=== PATIENT | female | born 1945 | race Caucasian/White ===

== ENCOUNTER 2017-07-09 11:02 | Emergency (ER) | payer MEDICARE ==
[~2017-07-09] VITALS: Ht 154.9 cm; Wt 65.8 kg
[2017-07-09] MEDS ORDERED: CLONIDINE1 EAC1 TD (11:35)
[2017-07-09] MEDS ORDERED: LISINOPRIL40 MG PO (11:35)
[2017-07-09] MEDS ORDERED: ATENOLOL50 MG PO (11:35)
[2017-07-09] MEDS ORDERED: METFORMIN HCL850 MG PO (11:36)
[2017-07-09] MEDS ORDERED: HYDROMORPHONE HC4 MG PO (11:39)
[2017-07-09] MEDS ORDERED: METHADONE HCL10 MG PO (11:40)
[2017-07-09] MEDS ORDERED: NAPROXEN375 MG PO (13:12)
[2017-07-09] MEDS ORDERED: LIDODERM1 EACH TOP (13:28)
== END 2017-07-09 13:45 | disposition home or self-care (01) ==
LOC: ED 11:02
DX: S46.911A Strain of unspecified muscle, fascia and tendon at shoulder and upper arm level, right arm, initial encounter (principal); S39.012A Strain of muscle, fascia and tendon of lower back, initial encounter; W00.0XXA Fall on same level due to ice and snow, initial encounter
CPT/HCPCS: 72100; 73030; 99283

== ENCOUNTER 2017-07-11 08:35 | Emergency (ER) | payer MEDICARE ==
[~2017-07-11] VITALS: Ht 154.9 cm; Wt 65.8 kg
[~2017-07-11 08:35] MED LIST: ATENOLOL50 MG PO; CLONIDINE1 EAC1 TD; HYDROMORPHONE HC4 MG PO; LIDODERM1 EACH TOP; LISINOPRIL40 MG PO; METFORMIN HCL850 MG PO; METHADONE HCL10 MG PO; NAPROXEN375 MG PO
[2017-07-11] MEDS ORDERED: ZOFRAN ODT4 MG PO (09:09)
== END 2017-07-11 09:15 | disposition home or self-care (01) ==
LOC: ED 08:35
DX: S39.012A Strain of muscle, fascia and tendon of lower back, initial encounter (principal); I10 Essential (primary) hypertension; F17.200 Nicotine dependence, unspecified, uncomplicated; Z79.899 Other long term (current) drug therapy; X58.XXXA Exposure to other specified factors, initial encounter
CPT/HCPCS: 99283